=== PATIENT | male | born 1980 | race Caucasian/White ===

== ENCOUNTER 2019-01-14 22:30 | Observation (INO) | payer MEDICAID, OTHER ==
[~2019-01-14] VITALS: Ht 188 cm; Wt 97.0 kg
--- NOTE | 2019-01-14 22:44 | NUR ---
assessment made. gowned , blankets provided.PA at bedside. urine sample obtained and sent to lab. belongings placed in 1 plastic bag, labeled and placed in locked cabinet.
[2019-01-14 23:23] LABS: BASOPHILS # (AUTO) 0.04 x10^3/uL (0-0.1); BASOPHILS % (AUTO) 1 % (0-1); EOSINOPHILS # (AUTO) 0.14 x10^3/uL (0-0.4); EOSINOPHILS % (AUTO) 3 % (1-7); LYMPHOCYTES # (AUTO) 1.82 x10^3/uL (1-3.4); LYMPHOCYTES % (AUTO) 33 % (22-44); MD NO; MEAN CORPUSCULAR HEMOGLOBIN 29.4 pg (27.5-34.5); MEAN CORPUSCULAR HGB CONC 33.9 g/dL (33.2-36.2); MEAN CORPUSCULAR VOLUME 86.7 fL (81-97); MEAN PLATELET VOLUME 7.4 fL (7.4-10.4); MONOCYTES # (AUTO) 0.49 x10^3/uL (0.2-0.8); MONOCYTES % (AUTO) 9 % (2-9); NEUTROPHILS # (AUTO) 3.05 x10^3/uL (1.8-6.8); NEUTROPHILS % (AUTO) 55 % (42-75); PLATELET COUNT 311 x10^3/uL (130-400); RED BLOOD COUNT 5.28 x10^6/uL (4.38-5.82); RED CELL DISTRIBUTION WIDTH 13.6 % (9.4-14.8)
[2019-01-14 23:27] LABS: AMPHETAMINE SCREEN, URINE Positive (Negative); BARBITURATE SCREEN, URINE Negative (Negative); BENZODIAZEPINE SCREEN, URINE Negative (Negative); CANNABINOID SCREEN, URINE Negative (Negative); COCAINE SCREEN, URINE Negative (Negative); METHADONE SCREEN, URINE Negative (Negative); OPIATE SCREEN, URINE Negative (Negative)
[2019-01-14 23:31] LABS: ALANINE AMINOTRANSFERASE 23 U/L (12-78); ALBUMIN 3.8 g/dL (3.4-5.0); ANION GAP 6 mmol/L (5-15); CALCIUM 8.5 mg/dL (8.5-10.1); CHLORIDE 107 mmol/L (98-107); CREATININE 1.01 mg/dL (0.7-1.3)
[2019-01-14 23:33] LABS: ALKALINE PHOSPHATASE 92 U/L (45-117); BILIRUBIN,TOTAL 0.5 mg/dL (0.2-1.0); TOTAL PROTEIN 7.3 g/dL (6.4-8.2)
[2019-01-14 23:34] LABS: SALICYLATE LEVEL < 1.7 mg/dL (2.8-20.0)
[2019-01-14 23:35] LABS: ACETAMINOPHEN < 2 mcg/mL (10-30)
--- NOTE | 2019-01-15 00:04 | NUR ---
report given to soc
--- NOTE | 2019-01-15 00:20 | NUR ---
pt speaking to telepsych via telerobot
[2019-01-15] MEDS ORDERED: AMANTADINE (01:33)
[2019-01-15] MEDS ORDERED: VISTARIL (01:33)
[2019-01-15] MEDS ORDERED: HALOPERIDOL 5 MG TABLET PO PRN (02:00)
[2019-01-15] MEDS ORDERED: DOCUSATE 100 MG CAPSULE PO PRN (02:00)
--- NOTE | 2019-01-15 02:04 | NUR ---
REPORT GIVEN TO ADRIAN VEGA
[2019-01-15 02:26] VITALS: BP 119/76
[2019-01-15] MEDS: NICOTINE 7 MG/24 HR PATCH.TD24 TD SCH (02:45)
[2019-01-15 03:03] VITALS: BP 119/76
[2019-01-15 08:34] VITALS: BP 119/83
[2019-01-15] MEDS: AMANTADINE 100 MG CAPSULE PO SCH ×2 (08:36→20:19)
[2019-01-15 19:47] VITALS: BP 115/76
[2019-01-16] MEDS: NICOTINE 7 MG/24 HR PATCH.TD24 TD SCH (02:00)
[2019-01-16 07:56] VITALS: BP 109/73
[2019-01-16] MEDS: AMANTADINE 100 MG CAPSULE PO SCH ×2 (08:24→20:33)
[2019-01-16 21:23] VITALS: BP 142/99
[2019-01-17] MEDS: NICOTINE 7 MG/24 HR PATCH.TD24 TD SCH (02:00)
[2019-01-17] MEDS: AMANTADINE 100 MG CAPSULE PO SCH ×2 (07:56→20:34)
[2019-01-17 07:59] VITALS: BP 139/81
[2019-01-17] MEDS ORDERED: HALOPERIDOL 5 MG/ML ONE (10:48)
[2019-01-17 19:16] VITALS: BP 119/82
[2019-01-18] MEDS: NICOTINE 7 MG/24 HR PATCH.TD24 TD SCH (02:11)
[2019-01-18 08:10] VITALS: BP 116/80
[2019-01-18] MEDS: AMANTADINE 100 MG CAPSULE PO SCH ×2 (08:24→20:32)
[2019-01-18 19:06] VITALS: BP 104/69
[2019-01-19] MEDS: NICOTINE 7 MG/24 HR PATCH.TD24 TD SCH (02:00)
[2019-01-19 07:34] VITALS: BP 119/83
[2019-01-19] MEDS: AMANTADINE 100 MG CAPSULE PO SCH ×2 (09:14→21:51)
[2019-01-19] MEDS: hydrOXyzine 50MG TABLET PO PRN (21:51)
[2019-01-19 21:56] VITALS: BP 98/68
[2019-01-20] MEDS: NICOTINE 7 MG/24 HR PATCH.TD24 TD SCH (02:00)
[2019-01-20 08:00] VITALS: BP 106/76
[2019-01-20] MEDS: AMANTADINE 100 MG CAPSULE PO SCH ×2 (08:19→20:31)
[2019-01-20 20:28] VITALS: BP 114/79
[2019-01-21] MEDS: NICOTINE 7 MG/24 HR PATCH.TD24 TD SCH (02:00)
[2019-01-21] MEDS: AMANTADINE 100 MG CAPSULE PO SCH ×2 (07:44→20:14)
[2019-01-21 08:05] VITALS: BP 118/82
[2019-01-21 19:29] VITALS: BP 143/96
[2019-01-22] MEDS: NICOTINE 7 MG/24 HR PATCH.TD24 TD SCH (02:00)
[2019-01-22 07:53] VITALS: BP 115/81
[2019-01-22] MEDS: AMANTADINE 100 MG CAPSULE PO SCH ×2 (08:25→20:21)
[2019-01-22] MEDS: hydrOXyzine 50MG TABLET PO PRN (08:38)
[2019-01-22 20:00] VITALS: BP 109/72
== END 2019-01-23 00:08 ==
LOC: ED 23:59 → EDIP 01-15 01:12 → 2N 01-15 02:23
PROVIDERS: ADMIT Internal Medicine; ATTEND Internal Medicine
DX: R45.851 Suicidal ideations (principal); F20.0 Paranoid schizophrenia; F10.10 Alcohol abuse, uncomplicated; F15.10 Other stimulant abuse, uncomplicated; F17.210 Nicotine dependence, cigarettes, uncomplicated; Z59.0 Homelessness; Z91.5 Personal history of self-harm
CPT/HCPCS: 36415; 80053; 80307; 80329; 85025; 99284; G0378; J1630; G0480

== ENCOUNTER 2021-01-28 11:44 | Emergency (ER) | payer MEDICAID ==
[~2021-01-28] VITALS: Ht 182.9 cm; Wt 75.0 kg
[~2021-01-28 11:44] MED LIST: AMANTADINE; VISTARIL
--- NOTE | 2021-01-28 11:56 | NUR ---
PT BIB BY EMS FOR HEARING VOICES. PT LOST HIS PSYCH MEDS AND HAS NOT TAKEN THEM IN 2 DAYS. PT CURRENTLY HAVING AUDITORY HALLUCINATIONS. PT DENIES ANY SI/HI. PT ALSO DENIES ANY PHYSCIAL COMPLAINTS. NO CP, SOB, ROLDAN, OR N/V.
[2021-01-28] MEDS ORDERED: HYDROXYZINE PAMOATE 50MG CAP PO ONE (12:00)
[2021-01-28] MEDS ORDERED: RISPERIDONE 2 MG TABLET PO ONE (12:00)
[2021-01-28] MEDS ORDERED: RISPERIDONE 2 MG TABLET ONE (12:17)
[2021-01-28] MEDS ORDERED: HYDROXYZINE PAMOATE 50MG CAP ONE (12:18)
--- NOTE | 2021-01-28 12:58 | NUR ---
[facility]
--- NOTE | 2021-01-28 12:59 | NUR ---
NINA DOZIER [phone]
[2021-01-28 13:11] VITALS: BP 130/87
--- NOTE | 2021-01-28 13:19 | NUR ---
PT REC'VD DISCHARGE INSTRUCTIONS AND EDUCATION. PT HAD NO QUESTIONS. PT AMBULATED TO DC AREA, STEADY GAIT.
== END 2021-01-28 13:21 | disposition home or self-care (01) ==
LOC: ED 13:09
DX: F25.9 Schizoaffective disorder, unspecified (principal); F15.10 Other stimulant abuse, uncomplicated; F17.200 Nicotine dependence, unspecified, uncomplicated; Z91.19 Patient's noncompliance with other medical treatment and regimen; Z72.9 Problem related to lifestyle, unspecified
CPT/HCPCS: 99283

== ENCOUNTER 2021-01-28 22:34 | Emergency (ER) | payer MEDICAID ==
[~2021-01-28] VITALS: Ht 182.9 cm; Wt 76.4 kg
[2021-01-28 22:39] VITALS: BP 127/85
--- NOTE | 2021-01-28 23:48 | NUR ---
PT IN BATHROOM, SHOUTING HE HAS DIARRHEA.
--- NOTE | 2021-01-28 23:54 | NUR ---
KNOCKING ON BATHROOM DOOR PT CONTINUES TO SHOUT HE HAS DIARRHEA, HOWEVER NO EVIDENCE OF PT USING BATHROOM AT ALL NOTED. PT OPENS DOOR BRIEFLY, LIGHTS ARE OFF AND HIS STUFF IS THROWN AROUND BATHROOM FLOOR, WITH HIS PANTS LONG-TERM DOWN AND UNDERWEAR ON. SECURITY ESCORTED PT TO ROOM, DR ALVA AT BEDSIDE. PT HAS PRESCRIPTIONS IN HAND FROM EARLIER VISIT ASKING IF WE NEED TO WATCH HIM TAKE THEM. PT EDUCATED ON HOW TO TAKE MEDICATIONS CORRECTLY.
--- NOTE | 2021-01-29 | NUR ---
SECURITY ESCORTED PT OUT. PT NOT WANTING TO WAIT FOR DC PAPERWORK.
== END 2021-01-29 00:03 | disposition home or self-care (01) ==
LOC: ED 23:45
DX: F41.1 Generalized anxiety disorder (principal); F17.200 Nicotine dependence, unspecified, uncomplicated; Z72.9 Problem related to lifestyle, unspecified
CPT/HCPCS: 99281